=== PATIENT | female | born 1960 | race Caucasian/White ===

== ENCOUNTER 2024-05-02 16:00 | Emergency (ER) | payer MEDICARE, SELFPAY ==
--- NOTE | ~2024-05-02 | XR_ITS ---
EXAMINATION: XR chest 2V Exam Date/Time: 05/02/2024 17:30 IT NETWORK ENGINEER HISTORY: cough and shortness of breath Comparison: None. RESULT: Lines, tubes, and devices: Cholecystectomy clips. Lungs and pleura: Increased lung volumes with hemidiaphragm flattening. 6 mm right midlung pulmonary nodule. Cardiomediastinal silhouette: Stable. Other: No acute osseous or upper abdominal finding. IMPRESSION: No acute cardiopulmonary process. Emphysematous changes. 6 mm left midlung pulmonary nodule, recommen d comparison to outside studies if available, otherwise nonemergent low-dose noncontrast CT of the ch est. Reviewed, dictated and finalized at location K. NETWORK ENGINEER IMPRESSION: No acute cardiopulmonary process. Emphysematous changes. 6 mm left midlung pulm onary nodule, recommend comparison to outside studies if available, otherwise n onemergent low-dose noncontrast CT of the chest.
[2024-05-02 17:13] VITALS: BP 139/75; PULSE 92; RESP 20; TEMP 38; O2SAT 90
[2024-05-02 18:21] LABS: EDCOVIDSCREEN Negative (Negative); EDINFLUASCREEN Negative (Negative); EDINFLUBSCREEN Negative (Negative)
--- NOTE | 2024-05-02 18:21 | ED.SOB ---
HPI - SOB/Dyspnea General Chief Complaint: Upper Respiratory Infection Stated Complaint: SOB Time Seen by Provider: 05/02/24 17:40 Source: patient, RN notes reviewed and old records reviewed Mode of arrival: ambulatory Limitations: no limitations History of Present Illness HPI Narrative: 63 year old female who presents to [facility] with complaints of increased shortness of breath and cough since before Vern[place]. Patient has history of COPD and continues to use tobacco daily but states has not smoked for the past 4 days. Patient has Symbicort inhaler but has not used inhaler states it doesn't ever do any good. Patient has some sinus congestion and drainage as well and is noted to have fever at time of triage.Patient reports that she has taken some Mayuri aspirin. MD elicited complaint: shortness of breath and cough Pertinent past history: COPD Onset (ago): week(s) (at least a week) Severity: moderate Known history of: COPD Treatment prior to arrival: aspirin and other (used symbicort till last few days states doesn't help) Related Data Home Medications ?Medication ?Instructions ?Recorded ?Confirmed ?Last Taken ?Type budesonide-formoterol HFA 80 2 inh inhalation ONCE 05/02/24 05/02/24 Unknown History mcg-4.5 mcg/actuation aerosol inhaler (Symbicort) Allergies Allergy/AdvReac Type Severity Reaction Status Date / Time No Known Allergies Allergy Unknown Verified 05/02/24 17:20 Review of Systems Review of Systems: CONSTITUTIONAL: Reports fever, chills, or sweats. EYES: Denies visual changes, redness, or discharge. ENT: Reports rhinorrhea, congestion,no sore throat, or otalgia. CARDIOVASCULAR: Denies chest pain, palpitations, or edema. RESPIRATORY: Reports cough and dyspnea. GASTROINTESTINAL: Denies abdominal pain, nausea, vomiting, or diarrhea. GENITOURINARY: Denies dysuria or hematuria. SKIN: Denies rash or itching. MUSCULOSKELETAL: Denies back pain, joint pain, or myalgia. NEUROLOGIC: Denies headache, numbness, or weakness. PSYCHIATRIC: Denies anxiety or depression. All systems reviewed & are unremarkable except as noted in HPI and below PMFSH Past Medical History Medical History (Updated 05/06/24 @ 14:19 by Mitzy Allen NP) COPD (chronic obstructive pulmonary disease) Surgical History Surgical History (Updated 05/06/24 @ 14:22 by Mitzy Allen NP) History of right oophorectomy History of incisional hernia repair Hx of appendectomy Hx of cholecystectomy Social History Social History (Updated 05/06/24 @ 14:19 by Mitzy Allen NP) Smoking status: Current every day smoker Tobacco type: cigarettes Alcohol intake: current Alcohol use details: social Substance use type: does not use Gender identity (if verbalized by the patient): Female Comments At time of signature, agree with nursing past medical, surgical, social and family history. There is no relevant family history pertinent to the presenting complaint Exam Narrative: GENERAL: ill-appearing, well-nourished, and in no acute distress. HEAD: Normocephalic, atraumatic. EYES: PERRLA and EOMI. ENT: Nares clear,clear rhinorrhea no epistaxis. Mucous membranes moist.TM's normal throat pink with no swelling PND NECK: Supple. no lymphadenopathy CHEST: Scattered wheezing throughout lung giraldo on auscultation. Frequent harsh cough SAO2 initially 90% up to 95% range HEART: Regular rate and rhythm. No murmur heard. Normal peripheral pulses. ABDOMEN: Soft, nontender, nondistended, normal active bowel sounds. EXTREMITIES: Normal range of motion. No edema. SKIN: Warm, dry, no rash. NEURO: No focal deficits. Alert and oriented x3. Course Course Emergency Course: Patient is aware of diagnosis, understands and agrees to treatment plan.? Anticipatory guidance given.? Patient agrees to follow-up as directed and is aware of reasons to seek care at the emergency department. Portions of this record may have been created with voice recognition software Level of Care: Express Care Visit Vital Signs Vital signs: Vital Signs Oxygen Delivery Room Air 05/02/24 17:10 Temperature 38.0 C H 05/02/24 17:13 Pulse Rate 92 05/02/24 17:13 Respiratory Rate 20 05/02/24 17:13 Blood Pressure 139/75 05/02/24 17:13 Pulse Oximetry 90 05/02/24 17:13 Oxygen Delivery Room Air 05/02/24 17:10 Reviewed MDM - SOB/Dyspnea Differential Diagnosis Differential diagnosis: Likely acute exacerbation of chronic obstructive airways disease, community acquired pneumonia, asthma with exacerbation and other (acute cough) Medical Records Attestation: I reviewed the patient's medical records. Lab Data Attestation: I reviewed the patient's lab results. Lab results narrative: Influenza A negative, Influenza B negative, COVID antigen negative Labs: Lab Results 05/02/24 Range/Units 18:19 POC Influenza A Ag Negative (Negative) POC Influenza B Ag Negative (Negative) POC SARS CoV-2 Ag Negative (Negative) reviewed Imaging Data My impression: no acute cardiopulmonary process, emphysematous changes 6mm pulmonary nodule left midlung recommend CT scan Radiologist's impression: [facility] [address] [place] [address] XRay Report Signed Patient: Karina Templeton : 1960 MR#: [id number] Age: 63 Acct:[id number] Loc: [facility] ADM Date: 05/02/24Attending Dr: Ordering Physician: Mitzy Allen APRN Date of Service: 05/02/24 Procedure(s): XR chest 2V Accession Number(s): [id number] cc: Anastacio, Ankit Modi MD; Mitzy Allen BLOW MOLD MACHINE OPERATOR~ EXAMINATION: XR chest 2V Exam Date/Time: 05/02/2024 17:30 MARINE ENGINEERING CONSULTANT HISTORY: cough and shortness of breath Comparison: None. RESULT: Lines, tubes, and devices: Cholecystectomy clips. Lungs and pleura: Increased lung volumes with hemidiaphragm flattening. 6 mm right midlung pulmonary nodule. Cardiomediastinal silhouette: Stable. Other: No acute osseous or upper abdominal finding. IMPRESSION: No acute cardiopulmonary process. Emphysematous changes. 6 mm left midlung pulmonary nodule, recommend comparison to outside studies if available, otherwise nonemergent low-dose noncontrast CT of the chest. Reviewed, dictated and finalized at location K. NE ENGINEERING CONSULTANT Please be advised this is a medical document. It is intended for [id number] communication. It is written in medical language and may contain unfamiliar abbreviations or verbiage. Medical documents are intended to carry relevant information, facts as evident, and the clinical opinion of the practitioner at the time of the encounter. This report may have been done utilizing a voice recognition system. Attempts have been made to correct errors. However, there may be uncorrected grammatical, spelling, and recognition errors present. The file time of this note does not necessarily represent the time the patient was seen. Dictated By: Daren Coleman MD 05/02/24 1742 Signed By: <Electronically signed by Daren Coleman MD in OV> Critical Care Time Critical Care Time Critical Care Time: No Discharge Plan Discharge Clinical Impression: Acute exacerbation of chronic obstructive airways disease Patient Disposition: Home, Self-Care Condition: Stable Instructions: Antibiotic Form, COPD (Chronic Obstructive Pulmonary Disease) (ED), Acute Cough (ED) Additional Instructions: Increase fluids especially juices and water [id number] cough and cold medicine of your choice for your symptoms Continue your inhaler/nebulizer as directed Steroids as directed--take with food heat to the face 20-30 minutes 4-6 times a day for pain Salt water gargles, throat lozenges or throat sprays as desired Antibiotic as directed--finished the medication benzonatate cough tabs as prescribed If your symptoms persist, change or worsen significantly before you can contact your personal physician then please, without delay, go to the emergency department for further evaluation. Follow-up with PCP in 7-10 days or sooner if needed Follow up with PCP soon in regards to your blood pressure which is elevated above threshold for referral. Blood pressure above 120/80 may indicate pre-hypertension.139/75 Patient Language: Nicaraguan Prescriptions: New albuterol sulfate 90 mcg/actuation HFA aerosol inhaler 2 puff inhalation QID PRN (Reason: shortness of breath or wheezing) Qty: 8.5 1RF amoxicillin-pot clavulanate 875-125 mg tablet 1 tablet PO Q12H Qty: 20 0RF Rx Instructions: take probiotic or eat activa yogurt while on this medication prednisone 50 mg tablet 50 mg PO DAILY Qty: 5 0RF Rx Instructions: start in am benzonatate 200 mg capsule 200 mg PO TID PRN (Reason: cough) Qty: 20 0RF No Action budesonide-formoterol [Symbicort] 80-4.5 mcg/actuation HFA aerosol inhaler 2 inh inhalation ONCE Follow-up/Referrals: Anastacio,Ankit Modi MD [Primary Care Provider] - Time of Disposition: 18:32 Quality [place] Coma Scale Eyes: Open Verbal: Oriented and Alert Motor: Follows Commands Greyson Coma Total Score: 15
== END 2024-05-02 18:36 | disposition home or self-care (01) ==
PROVIDERS: Emergency Provider Registered Nurse; PCP Internal Medicine
DX: J44.1 Chronic obstructive pulmonary disease with (acute) exacerbation (principal); F17.210 Nicotine dependence, cigarettes, uncomplicated; Z20.822 Contact with and (suspected) exposure to COVID-19
CPT/HCPCS: 71046; 87426; 87804; 99203; G0463